=== PATIENT | male | born 1945 | race Caucasian/White ===

== ENCOUNTER 2025-01-11 10:19 | Emergency (ER) | payer MEDICARE, OTHER ==
[~2025-01-11] VITALS: Ht 175.3 cm; Wt 86.6 kg
[~2025-01-11 10:19] MED LIST: AMLODIPINE BESY10 MG PO; ASPIR 8181 MG PO; BENAZEPRIL HCL20 MG PO; GABAPENTIN100 MG PO; GEMFIBROZIL600 MG PO; OSTEO BI-FLEX1 EAC2 PO
[2025-01-11 10:45] VITALS: TEMP 98.1
[2025-01-11 12:39] VITALS: PULSE 66; RESP 16
[2025-01-11 14:30] VITALS: BP 131/73; PULSE 84; RESP 14; TEMP 97.7; O2SAT 99
== END 2025-01-11 14:32 | disposition home or self-care (01) ==
LOC: ER 10:29
DX: S70.12XA Contusion of left thigh, initial encounter (principal); M79.652 Pain in left thigh; Z86.718 Personal history of other venous thrombosis and embolism; W07.XXXA Fall from chair, initial encounter
CPT/HCPCS: 93971; 99283